=== PATIENT | male | born 1995 | race Caucasian/White ===

== ENCOUNTER 2016-09-24 09:18 | Emergency (ER) | payer OTHER ==
--- NOTE | ~2016-09-24 | CR142 ---
[facility] A Service of [facility] & [facility] RADIOLOGY TEXT RESULTS PATIENT: ALEX HARO LOCATION: [facility] : [birth year] UNIT #: [id number] AGE: [address]: Phillip Nunez SEX: M ORDER DR: [id number] [facility] [address] [place], [place] [address] [id number] E MR#: [id number] Acc #: [id number] NAME: ALEX HARO : 1995 SEX: M STUDY DATE/TIME: 09/24/2016 9:21 UNIT: [facility] ROOM: STUDY DESCRIPTION: CR Hand Min 3 Views Rt Attending Physician: Phillip Nunez Ordering Physician: Ed Gennaro Alvarado M.D. Primary Care Physician: No Primary Care Physician MEDICAL IMAGING REPORT This report is preliminary unless electronic signature is present EXAM Right hand 09/24/2016 HISTORY 21-year-old male with right third finger pain status post laceration after smashing finger in wooden door today. COMPARISON None. FINDINGS 4 views of the right hand demonstrate no acute fracture or dislocation. No radiopaque foreign bodies. Soft tissues are unremarkable. IMPRESSION Unremarkable right hand Dictated by... Edward Valladares M.D. THIS IS AN ELECTRONICALLY VERIFIED REPORT Edward Valladares M.D. at 09/25/2016 8:13 AM TATO/india TD: 09/25/2016 02:26 JOB #: [id number] MEDICAL IMAGING REPORT Page 1 of 1 COPY
[~2016-09-24 09:18] MED LIST: NO MEDICATIONS; REMERON PO
== END 2016-09-24 10:39 | disposition home or self-care (01) ==
LOC: CED 09:18
DX: S61.212A Laceration without foreign body of right middle finger without damage to nail, initial encounter (principal); Z23 Encounter for immunization; W45.8XXA Other foreign body or object entering through skin, initial encounter; Y92.009 Unspecified place in unspecified non-institutional (private) residence as the place of occurrence of the external cause
CPT/HCPCS: 12001; 73130; 90471; 90715; 96372; 99283